=== PATIENT | male | born 1980 | race African-American/Black ===

== ENCOUNTER 2016-10-17 22:33 | Inpatient (IN) | payer OTHER ==
[~2016-10-17] VITALS: Ht 170.2 cm; Wt 65.8 kg
--- NOTE | ~2016-10-17 | CO ---
Unit #: [id number] #: [id number] Patient: KELLY GIRALDO [id number] [place] [address] [id number] MR#: [id number] NAME: KELLY GIRALDO ROOM: [facility] [place] Age: 35 Sex: M Admission Date: 10/18/2016 : 1980 Attending Physician: Luke Eduardo M.D. Primary Care Physician: Primary Care Physician No Consultation Date: 10/21/2016 CONSULTATION REPORT SUBJECTIVE Kelly is a 35-year-old admitted on 10/18/2016 because of his abuse of alcohol. He has been detoxing. Some time during his detox, he developed some psychosis. He was given a 10 mg Haldol injection and started on Cogentin. His symptoms improved and his detox progressed without complication. We ordered lab work. AST/ALT 198/72, with an ammonia level of 40. No baseline ammonia was drawn. The patient's mental status change most likely secondary to his alcohol detox. His symptoms improved as detox progressed and after administration of Haldol. He can follow up with PCP should any problems arise after discharge. Dictated by... Ning Taylor P.A.-C. for Ra Tapia/artur TD: 10/26/2016 23:16 JOB #: [id number] CONSULTATION REPORT Page 1 of 1 X Ning Taylor CONSULTATION REPORT
--- NOTE | ~2016-10-17 | PN ---
Unit #: [id number] #: [id number] Patient: KELLY RAWLS [id number] [facility] [address] [place] [address] [id number] I MR#: [id number] NAME: KELLY RAWLS ROOM: [facility] Age: 35 Sex: M Admission Date: 10/18/2016 : 1980 Attending Physician: Luke Eduardo M.D. Admitting Physician: Luke Eduardo M.D. Primary Care Physician: Primary Care Physician Sherry KIRKPATRICK PROGRESS NOTES DATE OF SERVICE 10/21/2016 DISCUSSION Kelly Rawls is a 35-year-old male seen on 10/21/2016. The patient interviewed, chart reviewed. Obtained information from nursing staff. The patient continues to be guarded, paranoid, needing one-to-one monitoring. The patient needed seclusion holding and required a p.r.n. medication last night. The patient still having disorganized behavior and thought process. Complete Review of Systems: Unremarkable. MENTAL STATUS EXAMINATION General Appearance: The patient dressed casually. Attention span, concentration: Poor. Mood and affect labile with disorganized thought process. Guarded, paranoid. Recent and remote memory: Poor. Insight and judgment: Poor. DIAGNOSES 1. Mood disorder not otherwise specified. 2. Psychosis not otherwise specified. ASSESSMENT/PLAN Advised to continue with current medication and therapeutic protocol. If needed, consider further adjustment of medication. Dictated by... Ra Quijano/rosie TD: 10/22/2016 15:21 JOB #: [id number] Unit #: [id number] #: [id number] Patient: KELLY RAWLS PROGRESS NOTES Page 1 of 1 X Luke Eduardo MD X PROGRESS NOTE
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
--- NOTE | ~2016-10-17 | PA ---
Unit #: [id number] #: [id number] Patient: KELLY GIRALDO [id number] [facility] [address] [place] [address] [id number] MR#: [id number] NAME: KELLY GIRALDO ROOM: [facility] Age: 35 Sex: M Admission Date: 10/18/2016 : 1980 Date of Assessment: Attending Physician: Luke Eduardo M.D. Admitting Physician: Luke Eduardo M.D. Primary Care Physician: Primary Care Physician No PSYCHIATRIC ASSESSMENT INFORMANTS The patient reliability, poor informant and chart reliability, good. CHIEF COMPLAINT Depression. HISTORY OF PRESENT ILLNESS Mr. Kelly Giraldo is a 35-year-old male, presented with the above-mentioned complaint of depression. The patient reported using alcohol, needing detox. The patient was withdrawn, isolative, flat affect. The patient presented with the alcohol detox and reported drinking almost one pint and 6-pack of beer. The patient reported it has been several hours since the last drink. The patient denied any suicidal or homicidal ideation or any psychotic symptom. The patient denied any use of any other drugs. The patient reported tobacco use, alcohol abuse, and marijuana use from several years. The patient's longest period of sobriety 9 months and last period of sobriety in 07/2016. The patient reports daily use of alcohol. The patient's blood alcohol level was over 400 at the time of admission. The patient reported drinking one pint and 6 beers daily. The patient has a history of blackouts. No history of any HIV, hepatitis, or IV drug use. History of withdrawal symptoms, tremor, DT, GI upset, restlessness, and agitation. Needing inpatient admission at this time for psychiatric stabilization. PAST PSYCHIATRIC HISTORY Unremarkable for any history of any previous treatment. FAMILY HISTORY AND SOCIAL HISTORY The patient has a poor support system. Currently, homeless. No known history of any abuse. No legal charges. MEDICAL HISTORY Remarkable for history of heart problems, details unknown at this time and history of hypertension. Musculoskeletal; muscle strength and tone, no atrophy or abnormal movement. Gait unable to assess, the patient in bed. MEDICATION HISTORY None. ALLERGIES No known drug allergies. SUBSTANCE ABUSE HISTORY Unit #: [id number] #: [id number] Patient: KELLY GIRALDO Please see above. REVIEW OF SYSTEMS HEENT: Eyes, clear. Ears, nose, mouth, and throat; clear. CARDIOVASCULAR: Unremarkable. RESPIRATORY: Unremarkable. GI: Unremarkable. : Unremarkable. SKIN: Unremarkable. LYMPH NODE: Unremarkable. NEUROLOGIC: Unremarkable. ENDOCRINE: Unremarkable. HEMATOLOGIC: Unremarkable. ALLERGIC/IMMUNOLOGIC: Unremarkable. MUSCULOSKELETAL: Muscle strength and tone, no atrophy or abnormal movement. Gait normal. MENTAL STATUS EXAMINATION CONSTITUTIONAL: Measurement of vital signs; temperature 98.7, heart rate 90, respiratory rate 16, and blood pressure 121/84. Height 5 feet 7 inches and weight 145 pounds. GENERAL APPEARANCE: The patient dressed casually. No facial deformity noted. MUSCULOSKELETAL: Please see above. PSYCHIATRIC EXAMINATION Description of speech, slow in volume and rate. Description of thought process, circumstantial. Description of association, guarded. Description of psychotic thinking; the patient denied any hallucinations, but guarded, withdrawn, flat affect, mood lability, and substance abuse. Description of the patient's judgment: Concerning everyday activity, poor. Social situation, poor. Concerning psychiatric condition, poor. Complete mental status examination; oriented in place and person. Recent and remote memory, poor. Attention span and concentration, poor. Language, fair. Fund of knowledge, poor. Vocabulary, poor. Mood and affect, sad and dysphoric. Insight and judgment, fair to poor. ASSETS AND LIABILITIES Assets, the patient is articulate and able to take care of his ADL. Liability, history of substance abuse. ADMITTING DIAGNOSES Psychiatric: Alcohol use disorder, severe, F10.20 and mood disorder, not otherwise specified, F32.9. Secondary diagnosis: Deferred. Medical diagnosis: History of heart problems. Stressors: Psychosocial stressors. PSYCHIATRIC PLAN AND TREATMENT GOAL AND DISCHARGE PLAN 1. Advised to admit the patient on the inpatient unit. Provide safe, supportive, and structured environment. 2. Ordered labs; CBC, CMP, UA, UDS, and EKG. 3. Detox protocol and detox monitoring. The patient to attend all the programing, group therapy, individual therapy, and chemical dependency Unit #: [id number] #: [id number] Patient: KRISTALKELLY . Treatment goal to attain euthymic mood, gain insight into his problem, and learn coping skills. DISCHARGE PLAN Plan to stabilize the patient and consider followup in outpatient program. ESTIMATED LENGTH OF STAY 3 to 5 days. Dictated by... Ra Quijano/artur TD: 10/18/2016 20:03 JOB #: [id number] PSYCHIATRIC ASSESSMENT Page 1 of 1 X Luke Eduardo MD PSYCHIATRIC ASSESSMENT
--- NOTE | ~2016-10-17 | A ---
[facility] Nutrition Therapy DATE: 10/19/16 Patient: KELLY GIRALDO Physician: JADA Address: [facility] Room/Bed: [address], Zip: [place] [address] Admit Date: 10/18/16 Date of : [birth year] Height: 5 7 Weight: [phone] NUTRITIONAL ASSESSMENT: REASON: UNINTENTIONAL WEIGHT LOSS PATIENT ADMITTED FOR ETOH DETOX PMH: HTN Anthropometrics: HT: 67", WT: 145#, BMI: 22.7 Labs: NO NUTRITIONAL LABS AVAILABLE Meds: ZESTRIL, MVI, TRAZODONE, DETOX PROTOCOL Assessment: PATIENT IS A 35 Y/O MALE ADMITTED FOR ETOH DETOX. PATIENT IS CURRENTLY UNEMPLOYED, HOMELESS, SMOKES <1/2 PPD, AND HAS DAILY ETOH AND MARIJUANA USE. UPON ADMIT PATIENT STATED A POOR APPETITE WITH AN UNKNOWN RECENT WEIGHT LOSS. THERE IS NO WEIGHT HX LISTED IN [facility] AND CURRENT PO INTAKES ARE UNAVAILABLE. PATIENT DOES HAVE SOME C/O NAUSEA AND HE IS ACTIVELY DETOXING. THERE ARE NO SKIN ISSUES NOTED ATT. CURRENT PSYCH MEDS MAY CAUSE WEIGHT AND APPETITE FLUCTUATIONS. THIS RD SUSPECTS PATIENT'S WEIGHT AND APPETITE WILL STABILIZE AND POSSIBLY INCREASE FOLLOWING DETOX. PATIENT IS ON A REGULAR DIET WITH NO CAFFEINE. HIS BMI IS WITHIN A HEALTHY RANGE OF 19-25 AND HE IS 98% OF HIS IBW. Dx: NO NUTRITION DX Intervention: REGULAR DIET WITH NO CAFFEINE, MEDS PER MD, DETOX, PSYCH Monitoring, Evaluation and Goals: 1. ADEQUATE PO INTAKES >50% OF MEALS 2. PREVENT, CORRECT MICRO/MACRO NUTRIENT DEFICIENCIES 3. WEIGHT; MAINTAIN CURRENT WEIGHT, PREVENT WEIGHT LOSS MONITOR: WEIGHTS, LABS, PO/FLUID INTAKES Recommendations: 1. CONTINUE REGULAR DIET WITH NO CAFFEINE TOLERATED. OFFER SNACKS BETWEEN MEALS. IF PATIENT HAS C/O HUNGER PLEASE SEND ORDER FOR LARGER PORTIONS AND RD WILL APPROVE. 2. ENCOURAGE ADEQUATE PO AND FLUID INTAKES 3. OBTAIN WEIGHTS ROUTINELY (EVERY 3-4 DAYS) RD TO F/U PER PROTOCOL AND PRN R/T PATIENT NOT AT NUTRITIONAL RISK ATT [facility] Nutrition Therapy DATE: 10/19/16 Patient: KELLY GIRALDO Physician: JADA Address: [facility] Room/Bed: [address], Zip: [place] [address] Admit Date: 10/18/16 Date of : [birth year] Height: 5 7 Weight: [phone] Respectfully, LIA HERNANDEZ RD, LD [employer] [facility] cc: client file
--- NOTE | ~2016-10-17 | PN ---
Unit #: [id number] #: [id number] Patient: KELLY RAWLS [id number] [facility] [address] [place] [address] [id number] MR#: [id number] NAME: KELLY RAWLS ROOM: P205 Age: 35 Sex: M Admission Date: 10/18/2016 : 1980 Attending Physician: Luke Eduardo M.D. Admitting Physician: Luke Eduardo M.D. Primary Care Physician: Primary Care Physician Sherry KIRKPATRICK PROGRESS NOTES DATE 10/22/2016 DISCUSSION Kelly Rawls is a 35-year-old male seen on 10/22/2016. Patient interviewed. Chart reviewed. Obtained information from nursing staff. Patient has a sitter. Patient reports sleeping a lot. Patient reported feeling stiff, difficulty walking, received Haldol yesterday and Zyprexa. Recommending to stop and advised Cogentin. Complete review of system unremarkable. MENTAL STATUS EXAMINATION General appearance, patient dressed casually. Attention span, concentration fair. Oriented in place and person. Mood and affect labile. Speech monotone. Thought process concrete. Patient denied any thoughts of harming self or others but somewhat guarded, paranoid. Recent and remote memory poor. Insight and judgement poor. DIAGNOSES 1. Mood disorder NOS. 2. Psychosis NOS. 3. Alcohol use disorder, severe. ASSESSMENT/PLAN Advised to discontinue Zyprexa. Advised Cogentin 1 mg now and 1 mg t.i.d. Continue with the inpatient programming. Dictated by... Ra Quijano/jadyn TD: 10/22/2016 21:05 JOB #: [id number] Unit #: [id number] #: [id number] Patient: KELLY RAWLS PROGRESS NOTES Page 1 of 1 X Luke Eduardo MD PROGRESS NOTE
--- NOTE | ~2016-10-17 | PN ---
Unit #: [id number] #: [id number] Patient: KELLY RAWLS [id number] [facility] [address] [place] [address] [id number] I MR#: [id number] NAME: KELLY RAWLS ROOM: [facility]205 Age: 35 Sex: M Admission Date: 10/18/2016 : 1980 Attending Physician: Luke Eduardo M.D. Admitting Physician: Luke Eduardo M.D. Primary Care Physician: Primary Care Physician Sherry KIRKPATRICK PROGRESS NOTES DATE 10/20/2016 DISCUSSION Kelly Rawls is a 35-year-old male, seen on 10/20/2016. The patient was scheduled to be discharged today but started showing more confusion, paranoia, bizarre behavior, guarded, paranoid. The patient was given p.r.n. Haldol 10 mg, Cogentin 1 mg, Ativan 1 mg. REVIEW OF SYSTEMS Complete review of systems unremarkable. MENTAL STATUS EXAMINATION General appearance: Patient dressed casually. Attention span and concentration, poor. Oriented in self and place. Mood and affect, labile. Speech, disorganized. Thought process, disorganized, guarded. Denied any thoughts of harming self or others but guarded, paranoid. Recent and remote memory, poor. Insight and judgment, poor. DIAGNOSIS Mood disorder, NOS. ASSESSMENT/PLAN Advised to continue with the current medication and therapeutic protocol, and if needed consider further adjustment of medication. Plan to add Zyprexa 10 mg at bedtime, and also medical consultation. Dictated by... Ra Quijano/slava TD: 10/21/2016 07:14 JOB #: [id number] Unit #: [id number] #: [id number] Patient: KELLY RAWLS PROGRESS NOTES Page 1 of 1 X Luke Eduardo MD X PROGRESS NOTE
--- NOTE | ~2016-10-17 | DS ---
Unit #: [id number] #: [id number] Patient: KELLY GIRALDO [id number] [facility] [address] [place] [address] [id number] I MR#: [id number] NAME: KELLY GIRALDO ROOM: [facility] Age: 35 Sex: M Admission Date: 10/18/2016 : 1980 Discharge Date: 10/24/2016 Attending Physician: Luke Eduardo M.D. Primary Care Physician: Primary Care Physician No DISCHARGE SUMMARY REASON FOR ADMISSION Detox. DIAGNOSTIC STUDIES Laboratory data, remarkable for AST of 198. HOSPITAL COURSE The patient was admitted to inpatient unit on October 18, and discharged on 10/24/16. The patient was treated on the inpatient unit with expressive therapy, medication management, psychoeducation, psychotherapy, structured milieu. The patient was responsive to treatment, showed improvement. The patient was discharged with plan to follow up in outpatient program. DISCHARGE DIAGNOSES PSYCHIATRIC: Ray I Alcohol use disorder, severe, F10.20. Mood disorder, NOS, F32.9. Ray II Deferred. Ray III Hypertension. Ray IV Psychosocial stressor. Ray V INSTRUCTIONS TO PATIENT The patient is to follow up in outpatient clinic as well as with director of social media marketing. DISCHARGE MEDICATIONS Lisinopril 20 mg daily for hypertension CONDITION AT DISCHARGE The patient is pleasant and cooperative, denied any psychotic symptoms, or any suicidal ideation. PROGNOSIS Guarded. DIET AND ACTIVITY As tolerated. Unit #: [id number] #: [id number] Patient: KELLY GIRALDO Dictated by... Ra Quijano/slava TD: 10/27/2016 07:03 JOB #: [id number] DISCHARGE SUMMARY Page 1 of 1 X Luke Eduardo MD X DISCHARGE SUMMARY
--- NOTE | ~2016-10-17 | PN ---
Unit #: [id number] #: [id number] Patient: KELLY GIRALDO [id number] [facility] [address] [place] [address] [id number] I MR#: [id number] NAME: KELLY GIRALDO ROOM: [facility] Age: 35 Sex: M Admission Date: 10/18/2016 : 1980 Attending Physician: Luke Eduardo M.D. Admitting Physician: Luke Eduardo M.D. Primary Care Physician: Primary Care Physician Sherry KIRKPATRICK PROGRESS NOTES DATE 10/23/2016 DISCUSSION Kelly is a 35-year-old male, seen on 10/23/2016. The patient interviewed, chart reviewed, and obtained information from the nursing staff. The patient was coloring, coherent, cooperative, no aggression. No side effects from medications. Currently on one-to-one monitoring. REVIEW OF SYSTEMS Complete review of systems unremarkable. MENTAL STATUS EXAMINATION General appearance: Patient dressed casually. Attention span and concentration, fair. Oriented in time, place, and person. Mood and affect, sad and dysphoric. Speech, monotone. Thought process, concrete. The patient denied any thoughts of harming self or others. Recent and remote memory, poor. Insight and judgment, poor. DIAGNOSES 1. Mood disorder, NOS. 2. Psychosis, NOS, resolved. ASSESSMENT/PLAN Advised to continue with the current medication and therapeutic protocol, and if needed consider further adjustment of medication with a plan to consider taking him off from one-to-one and considering discharge next week if the patient continues to make progress. Dictated by... Ra Quijano/slava TD: 10/24/2016 05:51 JOB #: [id number] Unit #: [id number] #: [id number] Patient: KELLY GIRALDO PROGRESS NOTES Page 1 of 1 X Luke Eduardo MD X PROGRESS NOTE
--- NOTE | ~2016-10-17 | PN ---
Unit #: [id number] #: [id number] Patient: KELLY GIRALDO [id number] [facility] [address] [place] [address] [id number] I MR#: [id number] NAME: KELLY GIRALDO ROOM: [facility] Age: 35 Sex: M Admission Date: 10/18/2016 : 1980 Attending Physician: Luke Eduardo M.D. Admitting Physician: Luke Eduardo M.D. Primary Care Physician: Primary Care Physician Sherry KIRKPATRICK PROGRESS NOTES DATE OF SERVICE 10/19/2016 DISCUSSION Kelly is a 35-year-old male seen on 10/19/2016. The patient interviewed, chart reviewed. Obtained information from nursing staff. The patient was compliant, cooperative. Mood sad, dysphoric. The patient was able to participate in program. Able to maintain safe behavior, but still isolative, guarded. Complete Review of Systems: Unremarkable. MENTAL STATUS EXAMINATION General Appearance: The patient dressed casually. Attention span, concentration: Fair. Oriented in place and person. Mood and affect labile. Speech: Monotone. Thought process: [place]. The patient denied any thoughts of harming self or others or any psychotic symptom. Recent and remote memory: Poor. Insight and judgment: Poor. DIAGNOSES 1. Alcohol use disorder, severe. 2. Mood disorder, not otherwise specified. ASSESSMENT/PLAN Advised to continue with current medication and therapeutic protocol. If needed, consider further adjustment of medication. Dictated by... Ra Quijano/rosie TD: 10/20/2016 07:08 JOB #: [id number] Unit #: [id number] #: [id number] Patient: KELLY GIRALDO PROGRESS NOTES Page 1 of 1 X Luke Eduardo MD X PROGRESS NOTE
[2016-10-18 12:39] LABS: URINE APPEARANCE CLEAR; URINE BILIRUBIN NEG (NEG); URINE BLOOD TRACE (NEG); URINE COLOR YELLOW; URINE GLUCOSE NEG (NEG); URINE KETONE NEG (NEG); URINE LEUKOCYTE ESTERASE NEG (NEG); URINE NITRATE NEG (NEG); URINE PH 5.5 (5-8); URINE PROTEIN 1+ (NEG); URINE SPECIFIC GRAVITY 1.025 (1.003-1.035); URINE UROBILINOGEN 0.2 MG/DL (NEG)
[2016-10-18 12:40] LABS: U HYALINE CASTS AUWI 0-2 /[LPF]; URBCS1 AUWI 0-2 /[HPF] (0-2); URINE BACTERIA AUWI NEG (NEGATIVE); URINE SQUAMOUS EPITHELIAL CELL NONE SEEN /[HPF]; UWBCS1 AUWI 0-2 (0-5)
[2016-10-22 12:44] LABS: BASOPHIL% 0.3 % (0-2.5); DIFF IND NO; EOSINOPHIL# 0.2 X10e3 (0-0.7); EOSINOPHIL% 3.8 % (0.0-7.0); HEMATOCRIT 45.9 % (38.0-50.0); HEMOGLOBIN 15.2 gm/dL (13.0-16.0); LYMPHOCYTE# 1.5 X10e3 (1.0-3.5); LYMPHOCYTE% 30.6 % (17.0-45.0); MEAN CELL VOLUME 94.4 FL (83-96); MEAN CORPUSCULAR HEMOGLOBIN 31.2 PG (28-34); MEAN PLATELET VOLUME 8.8 FL (6.5-11.5); MONOCYTE# 0.6 X10e3 (0-1.0); MONOCYTE% 11.9 % (3.0-12.0); NEUTROPHIL# 2.6 X10e3 (1.5-7.1); NEUTROPHIL% 53.4 % (40-75); PLATELET COUNT 148 X10e3 (140-420); RED BLOOD COUNT 4.86 X10e (3.90-5.60); RED CELL DISTRIBUTION WIDTH 15.4 % (11.0-15.5); WHITE BLOOD COUNT 4.9 X10e3 (4.0-10.5)
[2016-10-22 13:02] LABS: ALBUMIN SERUM 4.3 g/dL (3.5-5.0); CALCIUM SERUM 9.9 mg/dL (8.4-10.2); GLOM FILT RATE Estimated 112.5 mL/min (>60); POTASSIUM 4.4 mmol/L (3.5-5.1); PROTEIN TOTAL SERUM 8.2 g/dL (6.0-8.3)
== END 2016-10-24 09:55 | disposition home or self-care (01) | DRG 897 ==
LOC: P1E 10-18 01:42 → P2S 10-18 01:42
PROVIDERS: Psychiatry & Neurology Psychiatry
PROC: HZ2ZZZZ Detoxification Services for Substance Abuse Treatment (ICD-10-PCS; principal; 2016-10-18)
DX: F10.20 Alcohol dependence, uncomplicated (principal); F39 Unspecified mood [affective] disorder; I10 Essential (primary) hypertension; Z88.0 Allergy status to penicillin; F17.200 Nicotine dependence, unspecified, uncomplicated; F29 Unspecified psychosis not due to a substance or known physiological condition
CPT/HCPCS: 80053; 81003; 82140; 85025; 86592; J0515; J1630; J2060